=== PATIENT | male | born 1945 | race Caucasian/White ===

== ENCOUNTER 2016-11-28 20:27 | Inpatient (IN) ==
[2016-11-28] MEDS ORDERED: Ondansetron 4 MG/2 ML VIAL IVP ONE (20:34)
[2016-11-28] MEDS ORDERED: *HR* Morphine 2 MG/ML SYRINGE IVP ONE (20:34)
[2016-11-28] MEDS ORDERED: 0.9 % Sodium Chloride 1,000 ML IVC ONE (20:34)
--- NOTE | 2016-11-28 20:42 | Emergency Department Note ---
Disposition Clinical Impression: Hematochezia Abdominal pain Qualifiers: Abdominal location: lower abdomen, unspecified Qualified Code(s): R10.30 - Lower abdominal pain, unspecified Disposition: Admitted As Inpatient Condition: Fair Time of Disposition: 00:13 Abdominal Pain HPI - General Chief Complaint: ED Abdominal Pain Stated Complaint: lower abd pain, rectal bleeding Time Seen by Provider: 11/28/16 20:30 Nursing Notes Reviewed: Yes Vital Signs Reviewed: Yes - History of Present Illness HPI Narrative: Mr. Albert, a 71-year-old male, presents from the [place] for evaluation of lower abdominal pain and reported tabitha red blood per rectum. Onset at 04:15 this morning with diffuse abdominal cramping. Patient has had reportedly 18-20 loose stools with bright red clot-like strings of blood. He has had no testing or evaluation at the urgent care and was immediately referred to [facility]. PMH: Hypertension, hyponatremia, diabetes type 2, BPH, malignant melanoma status post remote resection PSH: No history of abdominal surgeries ROS: Positive: Chills, Diffuse lower abdominal cramping, bright red blood per rectum , mild generalized weakness Negative: Fever, nausea, vomiting, confusion, chest pains, palpitations, dyspnea , diaphoresis, numbness, tingling - Related Data Home Medications Medication Instructions Recorded Confirmed Amlodipine Besylate 10 mg PO DAILY 11/28/16 11/28/16 Cholecalciferol (D-3) [Vitamin D] 2,000 unit PO DAILY 11/28/16 11/28/16 Dulaglutide [Trulicity] 0.75 mg SQ QWEEK 11/28/16 11/28/16 Insulin Glargine,Hum.rec.anlog 58 unit SQ HS 11/28/16 11/28/16 [Basaglar Kwikpen U-100] Lisinopril [Zestril] 40 mg PO DAILY 11/28/16 11/28/16 Methocarbamol [Robaxin] 500 mg PO TID PRN 11/28/16 11/28/16 Pantoprazole Sodium [Protonix] 40 mg PO DAILY 11/28/16 11/28/16 Pravastatin Sodium [Pravachol] 40 mg PO HS 11/28/16 11/28/16 Terazosin HCl 6 mg PO 09/18/17 09/18/17 Allergies Allergy/AdvReac Type Severity Reaction Status Date / Time No Known Allergies Allergy Verified 11/28/16 21:00 All systems ED: reviewed and negative except as stated. Physical Exam Vital Signs Reviewed General: Patient is alert, oriented, and in no acute distress. HEENT: No facial asymmetry. Head is normocephalic and atraumatic. PERRLA, EOMI. oral mucosa moist. Trachea midline. Cardiovascular: Heart regular rate and rhythm without clicks, rubs, gallops, or murmurs. No JVD. PMI nondisplaced. Respiratory: Symmetric chest rise with good respiratory effort. Bilateral breath sounds are clear without wheezing, crackles, or rhonchi. Abdomen: Obese. Bowel sounds present normoactive x-4 quadrants. Abdomen is soft, nondistended. Lower abdominal tenderness slightly more prominent in the left lower quadrant. Rectal: Tabitha red blood per rectum. No hemorrhoids or fissures evident. Psych: Patient's affect is appropriate for situation. Course Course Narrative: History presents from the [place] where he initially refused workup preferring transfer to this facility for GI bleed. Onset this morning at 04:15. Patient has had 18-20 bouts of loose stools with bright red streaks of clot. He has no history of abdominal surgeries, no history of inflammatory bowel disease, no history of previous melena or hematochezia. He is symptomatic in that he has intense lower abdominal pain described as cramping, chills without fever, mild generalized weakness. Patient's hemoglobin shows no anemia. CT abdomen and pelvis without contrast concerning for colitis. FOBT not performed as rectal exam had tabitha red blood. I spoke with Dr. Robert of endoscopy to make them aware the patient and his active GI bleed. Patient remained stable. I spoke with the admitting hospitalist, Dr. Traylor, who agrees to accept the patient. Abdomen/Pelvis CT 11/28/16 20:34 IMPRESSION: Findings as above likely representing inflammatory or infectious colitis involving the descending colon. No free air or intra-abdominal fluid collection. 2 fluid collections along the lower right abdominal wall superficial to the musculature. 1 appears simple in 1 appears slightly complex. Findings may represent evolving hematomas as there is history of trauma. Correlate clinically. D/ / Jenna Watson MD / Jenna Watson MD Interpreting Provider: Jenna Watson MD Vital Signs Temperature 97.8 F 11/28/16 20:32 Pulse Rate 83 11/28/16 20:32 Respiratory Rate 18 11/28/16 20:32 Blood Pressure 137/102 11/28/16 20:32 O2 Sat by Pulse Oximetry 97 11/28/16 20:32 Temperature 97.8 F 11/28/16 20:32 Pulse Rate 63 11/28/16 22:31 Respiratory Rate 16 11/28/16 23:25 Blood Pressure 136/84 11/28/16 23:25 O2 Sat by Pulse Oximetry 98 11/28/16 22:31 Oxygen Delivery Oxygen Delivery Room Air Abdominal Pain - Medical Records Medical records reviewed: Yes I reviewed the patient's medical records. - Lab Data Lab results reviewed: Yes I reviewed the patient's lab results. Result diagrams: 11/28/16 20:55 11/28/16 20:55 Lab Results 11/28/16 11/28/16 11/28/16 Range/Units 20:55 20:55 20:55 WBC 10.9 (4.3-11.1) K/mcL RBC 5.45 (4.19-5.50) M/mcL Hgb 15.6 (12.9-16.9) g/dL Hct 46.1 (37.5-50.1) % MCV 84.6 (83.0-100.0) fL MCH 28.6 (28.0-33.3) pg MCHC 33.8 (31.6-35.5) g/dL RDW 12.9 (11.5-14.5) % Plt Count 171 (140-400) K/mcL MPV 11.0 (9.4-12.4) fL Immature Gran % 0.3 (0-4) % Seg Neutrophils % 66.1 % Lymphocytes % 25.9 % Monocytes % 6.5 % Eosinophils % 0.7 % Basophils % 0.5 % Neutrophils # 7.2 (1.6-8.9) K/mcL Lymphocytes # 2.8 (0.6-4.6) K/mcL Monocytes # 0.7 (0.0-1.3) K/mcL Eosinophils # 0.1 (0.0-0.6) K/mcL Basophils # 0.1 (0.0-0.2) K/mcL PT 10.4 (9.4-12.1) Seconds INR 1.0 APTT 25.8 L (26.0-36.0) Seconds Sodium 138 (136-145) mEq/L Potassium 4.2 (3.5-4.5) mEq/L Chloride 107 (98-109) mEq/L Carbon Dioxide 21 (19-29) mEq/L BUN 17 (8-26) mg/dL Creatinine 1.49 H (0.72-1.25) mg/dL Est GFR ( Amer) 56 L (> 60) Est GFR (Non-Af Amer) 46 L (> 60) BUN/Creatinine Ratio 11 (6-26) Glucose 151 H (70-99) mg/dL Calculated Osmolality 290 (280-300) Lactic Acid (0.5-2.2) mmol/L Calcium 9.5 (8.6-10.8) mg/dL Total Bilirubin 0.8 (0.2-1.2) mg/dL Direct Bilirubin 0.3 (0.0-0.5) mg/dL Indirect Bilirubin 0.5 (0.0-1.2) mg/dL AST 32 (5-34) Units/L ALT 38 (0-55) Units/L Alkaline Phosphatase 77 (38-126) Units/L Serum Total Protein 7.2 (6.0-8.3) g/dL Albumin 3.8 (3.5-5.0) g/dL Globulin 3.4 (2.4-3.5) g/dL Albumin/Globulin Ratio 1.1 (1.1-2.2) Lipase 54 (8-78) Units/L Urine Color (Yellow) Urine Clarity (Clear) Urine pH (5.0-8.0) pH Units Ur Specific [place] (1.010-1.025) Urine Protein (Neg-Trace) mg/dL Urine Glucose (UA) (Normal) mg/dL Urine Ketones (Negative) mg/dL Urine Blood (Negative) Urine Nitrite (Negative) Urine Bilirubin (Negative) Urine Urobilinogen (Normal) mg/dL Ur Leukocyte Esterase (Negative) Urine Microscopic RBC (0-3) per hpf Urine Microscopic WBC (0-3) per hpf Ur Squamous Epith Cells (None-Few) per lpf Urine Bacteria (None-Few) per hpf Hyaline Casts (None-Few) per lpf Ur Culture Indicated? (NO) 11/28/16 11/28/16 Range/Units 20:55 21:49 WBC (4.3-11.1) K/mcL RBC (4.19-5.50) M/mcL Hgb (12.9-16.9) g/dL Hct (37.5-50.1) % MCV (83.0-100.0) fL MCH (28.0-33.3) pg MCHC (31.6-35.5) g/dL RDW (11.5-14.5) % Plt Count (140-400) K/mcL MPV (9.4-12.4) fL Immature Gran % (0-4) % Seg Neutrophils % % Lymphocytes % % Monocytes % % Eosinophils % % Basophils % % Neutrophils # (1.6-8.9) K/mcL Lymphocytes # (0.6-4.6) K/mcL Monocytes # (0.0-1.3) K/mcL Eosinophils # (0.0-0.6) K/mcL Basophils # (0.0-0.2) K/mcL PT (9.4-12.1) Seconds INR APTT (26.0-36.0) Seconds Sodium (136-145) mEq/L Potassium (3.5-4.5) mEq/L Chloride (98-109) mEq/L Carbon Dioxide (19-29) mEq/L BUN (8-26) mg/dL Creatinine (0.72-1.25) mg/dL Est GFR ( Amer) (> 60) Est GFR (Non-Af Amer) (> 60) BUN/Creatinine Ratio (6-26) Glucose (70-99) mg/dL Calculated Osmolality (280-300) Lactic Acid 1.8 (0.5-2.2) mmol/L Calcium (8.6-10.8) mg/dL Total Bilirubin (0.2-1.2) mg/dL Direct Bilirubin (0.0-0.5) mg/dL Indirect Bilirubin (0.0-1.2) mg/dL AST (5-34) Units/L ALT (0-55) Units/L Alkaline Phosphatase (38-126) Units/L Serum Total Protein (6.0-8.3) g/dL Albumin (3.5-5.0) g/dL Globulin (2.4-3.5) g/dL Albumin/Globulin Ratio (1.1-2.2) Lipase (8-78) Units/L Urine Color Yellow (Yellow) Urine Clarity Clear (Clear) Urine pH 5.5 (5.0-8.0) pH Units Ur Specific [place] 1.022 (1.010-1.025) Urine Protein Trace (Neg-Trace) mg/dL Urine Glucose (UA) Normal (Normal) mg/dL Urine Ketones Negative (Negative) mg/dL Urine Blood Negative (Negative) Urine Nitrite Negative (Negative) Urine Bilirubin Negative (Negative) Urine Urobilinogen Normal (Normal) mg/dL Ur Leukocyte Esterase Negative (Negative) Urine Microscopic RBC 0-3 (0-3) per hpf Urine Microscopic WBC 0-3 (0-3) per hpf Ur Squamous Epith Cells Few (None-Few) per lpf Urine Bacteria None Seen (None-Few) per hpf Hyaline Casts None Seen (None-Few) per lpf Ur Culture Indicated? NO (NO) - Radiology Data Radiology results reviewed: Yes I reviewed the patient's radiology results. - EKG Data EKG attestation: Yes I reviewed and interpreted this EKG. EKG results narrative: EKG dated 11/28/16 at 21:03 interpreted as sinus rhythm with rate of 63. Prolonged CT interval at 246; first-degree AV block. Normal axis. Nonspecific ST T changes. No previous EKG for comparison. Attestation Statement - Attestation Attestation: I, Chuck Browne DO, examined this patient [id number] and my medical decision-making was reviewed with Dr. Bryn Hood, Resident Physician. I agree with the documented findings, disposition and treatment plan as described except to the extent set forth below. Please see my progress notes for details. 71-year-old male arrives by EMS from the [facility] for evaluation of multiple episodes of gross blood per rectum. Patient has no history of GI bleed hemorrhoids or rectal fissure. Had a colonoscopy 2 year ago with no complications. No polyps were noted no signs of cancer. No history of prostate related issues. Patient denies any other issues prior to today's events. He had lower abdominal discomfort and then had approximately 6-7 episodes of bright red blood per rectum over the last 12 hours. Patient did not have any lab work or imaging completed at the outside facility prior to arrival. EKG troponin labs type and screen CT imaging the abdomen ordered at this time. Physical exam is otherwise benign patient sitting up in the bed mild abdominal discomfort no peritoneal symptoms no guarding no rigidity abdomen is not distended. Lungs are clear heart is regular. Vital signs reviewed and are otherwise stable patient is not tachycardic or hypotensive. IV access obtained fluids to be given pain medication be provided as needed. Disposition will most likely be admission to hospital. See detailed documentation of the physical exam medical decision making process medical intervention and consultation for admission and the resident physician's notes.
[2016-11-28 21:06] LABS: Basophils # 0.1 K/mcL (0.0-0.2); Basophils % 0.5 %; Eosinophils # 0.1 K/mcL (0.0-0.6); Eosinophils % 0.7 %; Hematocrit 46.1 % (37.5-50.1); Hemoglobin 15.6 g/dL (12.9-16.9); Immature Granulocytes % 0.3 % (0-4); Lymphocytes # 2.8 K/mcL (0.6-4.6); Lymphocytes % 25.9 %; Mean Corpuscular HGB Conc 33.8 g/dL (31.6-35.5); Mean Corpuscular Hemoglobin 28.6 pg (28.0-33.3); Mean Corpuscular Volume 84.6 fL (83.0-100.0); Monocytes # 0.7 K/mcL (0.0-1.3); Monocytes % 6.5 %; Neutrophils # 7.2 K/mcL (1.6-8.9); Platelet Count 171 K/mcL (140-400); Red Blood Count 5.45 M/mcL (4.19-5.50); Red Cell Distribution Width 12.9 % (11.5-14.5); Segmented Neutrophils % 66.1 %
[2016-11-28 21:08] LABS: Prothrombin Time 10.4 Seconds (9.4-12.1)
[2016-11-28 21:11] LABS: Activated Partial Thrombo Time 25.8 Seconds (26.0-36.0)
[2016-11-28 21:18] LABS: Alanine Aminotransferase 38 Units/L (0-55); Albumin 3.8 g/dL (3.5-5.0); Albumin/Globulin Ratio 1.1 (1.1-2.2); Alkaline Phosphatase 77 Units/L (38-126); Aspartate Amino Transferase 32 Units/L (5-34); BUN/Creatinine Ratio 11 (6-26); Bilirubin,Direct 0.3 mg/dL (0.0-0.5); Bilirubin,Indirect 0.5 mg/dL (0.0-1.2); Bilirubin,Total 0.8 mg/dL (0.2-1.2); Blood Urea Nitrogen 17 mg/dL (8-26); Calcium 9.5 mg/dL (8.6-10.8); Carbon Dioxide 21 mEq/L (19-29); Chloride 107 mEq/L (98-109); Globulin 3.4 g/dL (2.4-3.5); Glucose 151 mg/dL (70-99); Lipase 54 Units/L (8-78); Osmolality,Calculated 290 (280-300); Potassium 4.2 mEq/L (3.5-4.5); Sodium 138 mEq/L (136-145); Total Protein 7.2 g/dL (6.0-8.3); eGFR For African Americans 56 (> 60); eGFR For Non-African Americans 46 (> 60)
[2016-11-28 21:53] LABS: Bilirubin,Urine Negative (Negative); Blood,Urine Negative (Negative); Clarity,Urine Clear (Clear); Color,Urine Yellow (Yellow); Glucose,Urine (UA) Normal (Normal); Ketones,Urine Negative (Negative); Leukocyte Esterase,Urine Negative (Negative); Nitrite,Urine Negative (Negative); PH,Urine 5.5 pH Units (5.0-8.0); Protein,Urine Trace mg/dL (Neg-Trace); Specific Gravity,Urine 1.022 (1.010-1.025); Urobilinogen,Urine Normal (Normal)
[2016-11-28 21:55] LABS: Bacteria,Urine None Seen per hpf (None-Few); Hyaline Casts,Urine None Seen per lpf (None-Few); RBC,Urine 0-3 per hpf (0-3); Squamous Epithelial Cell,Urine Few per lpf (None-Few); WBC,Urine 0-3 per hpf (0-3)
[2016-11-28] MEDS ORDERED: MetroNIDAZOLE 500 MG/100 ML 500 MG/100 ML BAG IVPB ONE (22:14)
[2016-11-29] MEDS ORDERED: Naloxone 0.4 MG/ML INJ IVP PRN (01:15)
[2016-11-29] MEDS ORDERED: 0.9 % Sodium Chloride 1,000 ML IVC SCH ×2 (01:15→12:09)
[2016-11-29] MEDS: *HR* Morphine 2 MG/ML SYRINGE IVP PRN ×2 (04:08→13:16)
[2016-11-29] MEDS: Pantoprazole 40 MG VIAL IVP SCH ×3 (04:08→18:26)
--- NOTE | 2016-11-29 04:21 | Internal Med History&Physical ---
Date of Encounter: 11/29/16 Time of Encounter: 02:00 Assessment and Plan (1) Hematochezia Current visit: Yes Status: Acute Acute infectious colitis of descending colon with acute lower GI bleed - causing abdominal pain NPO, continue IV Flagyl, IV Cipro IV fluids, IV Protonix, IV Morphine as needed Dr. Robert consult for GI bleed CT abdomen and pelvis - reviewed Cardiac telemetry, monitor closely, monitor H&H, type and screen Transfuse PRBC as needed (2) Hypertension Current visit: Yes Status: Chronic Essential hypertension controlled, continue home meds Qualifiers: Hypertension type: essential hypertension Qualified Code(s): I10 - Essential (primary) hypertension (3) Diabetes Current visit: Yes Status: Chronic Diabetes mellitus type II, insulin-dependent, hyperglycemia Continue insulin sliding scale, Levemir, glucose checks Qualifiers: Diabetes mellitus type: type 2 Diabetes mellitus complication status: without complication 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 Albert is a 71 year old male with past medical history of hypertension, diabetes, hyperlipidemia, BPH and history of melanoma status post resection. He presents to the ED with complaints of abdominal pain. Examined in the room. Patient is awake and alert. Not in any distress. Able to provide history. No family members at bedside. Patient states his abdominal pain started about 12 hours prior to arrival. He states he has diffuse abdominal cramping. He had multiple episodes of loose stools with bright red blood per rectum. He states it was initially streaks of blood and then he saw some clots. He states he continues to have bright red blood per rectum. He also complains of generalized weakness and nausea. No fever no vomiting. No chest pain and denies shortness of breath or palpitations or headache or dizziness. No aggravating or alleviating factors. Patient states symptoms came on suddenly. Patient was transferred from the [place] to our facility. Initial workup in the ED revealed mild acute kidney injury, stable H&H and infectious colitis involving the descending colon. Patient was also found to have 2 fluid collections along the lower right abdominal wall which could possibly hematoma. Patient states this hematoma has chronic, and says it has been present ever since he had surgery for melanoma. Patient is being admitted for GI bleed and acute colitis. CODE STATUS full code. Past Med Surg Social Fam HX - Past Medical History Medical history: cancer, diabetes, hyperlipidemia, hypertension, renal disease Psychiatric history: no psych history - Past Surgical History Surgical History: other (Malignant melanoma resection from right flank) - Social History Smoking Status: Never smoker Smokeless Tobacco Status: No Alcohol use: none Drug use: none - Family History Father Hx Family Endocrine Disorder: Yes (DM) Internal Medicine - H&P: Meds Amlodipine Besylate 10 mg PO DAILY 11/28/16 [History] Cholecalciferol (D-3) [Vitamin D] 2,000 unit PO DAILY 11/28/16 [History] Dulaglutide [Trulicity] 0.75 mg SQ QWEEK 11/28/16 [History] Insulin Glargine,Hum.rec.anlog [Basaglar Kwikpen U-100] 58 unit SQ HS 11/28/16 [ History] Lisinopril [Zestril] 40 mg PO DAILY 11/28/16 [History] Methocarbamol [Robaxin] 500 mg PO TID PRN 11/28/16 [History] Pantoprazole Sodium [Protonix] 40 mg PO DAILY 11/28/16 [History] Pravastatin Sodium [Pravachol] 40 mg PO HS 11/28/16 [History] Terazosin HCl 6 mg PO HS 11/28/16 [History] 3 Allergy/AdvReac Type Severity Reaction Status Date / Time No Known Allergies Allergy Verified 11/28/16 21:00 All Systems PM: A 10-system review of systems was performed and is negative for pertinent findings except as documented above in the HPI. - Constitutional Constitutional: fatigue, weakness, no fever(s) - EENT Eyes: no blurry vision - Cardiovascular Cardiovascular ROS IM: no chest pain, no claudication, no diaphoresis, no dyspnea, no dyspnea on exertion, no edema, no lightheadedness, no orthopnea, no palpitations, no syncope - Respiratory Respiratory: no cough, no dyspnea, no hemoptysis, no dyspnea on exertion, no wheezing, no chest congestion - Gastrointestinal Gastrointestinal: abdominal pain, bloating, cramping, diarrhea, hematochezia, nausea, no heartburn, no hematemesis, no vomiting - Genitourinary Genitourinary ROS male: no dysuria - Neurological Neurological ROS: no abnormal gait, no confusion, no dizziness, no loss of vision, no numbness, no tingling - Constitutional Vitals: Temp Pulse Resp BP Pulse Ox 97.7 F 57 15 168/89 98 11/29/16 00:40 11/29/16 00:40 11/29/16 00:40 11/29/16 00:40 11/29/16 00:40 General appearance: Present: cooperative, A&O X 3, pleasant, no acute distress, obese, answers questions appropriately - Head Head exam: Present: atraumatic - Eye Eye exam: Present: EOMI - ENT ENT exam: Present: mucous membranes dry - Respiratory Respiratory exam: Present: CTAB. Absent: rales, rhonchi, wheezes, tachypnea - Cardiovascular Cardiovascular exam: Present: RRR, +S1, +S2 - GI/Abdominal GI/Abdominal exam: Present: soft, tenderness (Mild generalized tenderness), no peritoneal signs. Absent: distended, firm, guarding - Extremities Exam Extremities exam: Present: radial pulses palpable and symmetrical. Absent: calf tenderness, cyanotic, pedal edema - Back Exam Additional comments: Large surgical scar over her back and right flank. History of melanoma resection. - Neurological Exam Neurological exam: Present: alert, oriented X3, no focal deficits. Absent: facial droop, speech deficit Internal Med - H&P Results - Labs CBC & Chem 7: 11/28/16 20:55 11/28/16 20:55
[2016-11-29] MEDS ORDERED: Dextrose Gel 15 GM PO PRN ×2 (04:31)
[2016-11-29] MEDS ORDERED: *HR* Dextrose 50 % in Water (Syg) 50 ML SYRINGE IVP PRN (04:31)
[2016-11-29] MEDS ORDERED: D5% in Water 1,000 ML IVC PRN (04:31)
[2016-11-29] MEDS: Ondansetron 4 MG/2 ML VIAL IVP PRN ×2 (07:15→18:28)
[2016-11-29 07:17] LABS: Basophils # 0.1 K/mcL (0.0-0.2); Basophils % 0.5 %; Eosinophils # 0.1 K/mcL (0.0-0.6); Eosinophils % 1.3 %; Hematocrit 43.2 % (37.5-50.1); Hemoglobin 14.1 g/dL (12.9-16.9); Immature Granulocytes % 0.2 % (0-4); Lymphocytes % 31.9 %; Mean Corpuscular HGB Conc 32.6 g/dL (31.6-35.5); Mean Corpuscular Hemoglobin 28.1 pg (28.0-33.3); Mean Corpuscular Volume 86.1 fL (83.0-100.0); Mean Platelet Volume 11.3 fL (9.4-12.4); Monocytes # 0.8 K/mcL (0.0-1.3); Monocytes % 8.1 %; Neutrophils # 5.4 K/mcL (1.6-8.9); Platelet Count 149 K/mcL (140-400); Red Blood Count 5.02 M/mcL (4.19-5.50); Red Cell Distribution Width 13.2 % (11.5-14.5)
[2016-11-29 07:27] LABS: Hemoglobin A1C 8.5 %
[2016-11-29] MEDS: Insulin LISPRO 300 UNITS/3 ML VIAL SQ SCH ×4 (07:27→21:18)
[2016-11-29 07:30] LABS: Calcium 8.8 mg/dL (8.6-10.8); Magnesium 1.6 mg/dL (1.6-2.6)
[2016-11-29] MEDS ORDERED: Pantoprazole 40 MG VIAL IVP SCH (09:00)
[2016-11-29] MEDS: MetroNIDAZOLE 500 MG/100 ML 500 MG/100 ML BAG IVPB SCH ×2 (10:06→16:46)
[2016-11-29] MEDS ORDERED: SODIUM CHLORIDE/NAHCO3/KCL/PEG 4,000 ML SOLN.RECON PO ONE (12:44)
--- NOTE | 2016-11-29 14:39 | Gastroenterology Consult Note ---
<Tim Au - Last Filed: 11/29/16 15:26> Date of Encounter: 11/29/16 Time of Encounter: 14:36 - Assessment and plan (1) BRBPR (bright red blood per rectum) Status: Acute Assessment and plan: CT abdomen/pelvis showed inflammatory vs infectious colitis involving descending coon, no free air in abdomen. There were fluid collections in the lower right abdominal wall superficial to musculature, likely hematomas. Plan: continue Antibiotic coverage colonoscopy tomorrow. clear liquid diet now, NPO after midnight. use Golytely bowel prep, if bowel movements not clear by 6am give two water tap enemas. - Time Spent With Patient Total time spent is greater than 50% in coordination of care (as documented) at patient's floor/unit and/or counseling patient: GI History of Present Illness - Data of Consult Consult date: 11/29/16 Requesting Physician: Meliton Liu MD - Consult Narrative Reason for consult: gastritis with hematochezia. History of present illness: Mr. Albert is a 71 year old male with PMHx of HTN, DM, HLD, BPH, history of melanoma. patient presented to the ED as transfer from [place] last night with chief complaint of abdominal pain which started about 12 hours prior to arrival at hospital. he also reports multiple episodes of loose stools (10-12) with bright red blood per rectum. He states that symptoms came on suddenly. He states he has had stringy blood clots in his bowel movements. he admits to nausea without vomiting, denies illicit drug use, denies using migraine meds. He denies chest pain or shortness of breath, fever, admits to occasional chills. Past Med Surg Social Fam HX - Past Medical History Medical history: cancer, diabetes, hyperlipidemia, hypertension, renal disease Psychiatric history: no psych history - Past Surgical History Surgical History: other (Malignant melanoma resection from right flank) - Social History Smoking Status: Never smoker Smokeless Tobacco Status: No Alcohol use: none Drug use: none - Family History Father Hx Family Endocrine Disorder: Yes (DM) All systems PM: reviewed and no additional remarkable complaints except as stated - Constitutional Vitals: Temp Pulse Resp BP Pulse Ox 97.5 F L 61 15 151/82 94 11/29/16 11:46 11/29/16 11:46 11/29/16 11:46 11/29/16 11:46 11/29/16 11:46 General appearance: Present: A&O X 3, pleasant, no acute distress, answers questions appropriately - Head Head exam: Present: atraumatic, normocephalic - Neck Neck exam general surgery: Present: supple, trachea midline - Respiratory Respiratory exam: Present: CTAB - Cardiovascular Cardiovascular exam: Present: RRR, +S1, +S2 - GI/Abdominal GI/Abdominal exam: Present: distended, soft, tenderness (lower abodminal tenderness present. ) - Extremities Exam Extremities exam: Absent: cyanotic, pedal edema - Neurological Exam Neurological exam: Present: alert, oriented X3, no focal deficits - Psychiatric Psychiatric exam: Present: normal affect, normal mood - Skin Skin exam: Present: intact Results - Labs CBC & Chem 7: 11/29/16 06:30 11/29/16 06:30 Labs: Last Result Calcium 8.8 mg/dL (8.6-10.8) 11/29/16 06:30 Entire Visit Hgb 14.1 g/dL (12.9-16.9) D 11/29/16 06:30 Hct 43.2 % (37.5-50.1) 11/29/16 06:30 PT 10.4 Seconds (9.4-12.1) 11/28/16 20:55 Total Bilirubin 0.8 mg/dL (0.2-1.2) 11/28/16 20:55 AST 32 Units/L (5-34) 11/28/16 20:55 ALT 38 Units/L (0-55) 11/28/16 20:55 Lipase 54 Units/L (8-78) 11/28/16 20:55 - ABG ABG results: PT/INR, D-dimer PT 10.4 Seconds (9.4-12.1) 11/28/16 20:55 Consult Discharge Plan - Plan Instructions: Diabetes Mellitus Type 2 in Adults ([place]) Additional Instructions: Patient appears to have CKD. Recommend follow up with Nephrology Referrals: [facility] [Outside] - 12/08/16 11:00 am Cristal Owens MD [Partnered Physician] - (The [place] will get this appt. approved and will call patient with date and time of appt. Thank you) Katelyn Guevara MD [Partnered Physician] - (2 week follow up for biopsy results. Office will call patient at home with date and time of appt. Thank you) Prescriptions: Aspirin Enteric Coated [Aspirin EC] 81 mg PO DAILY #30 tablet. Ciprofloxacin [Cipro] 500 mg PO BID #20 tablet metroNIDAZOLE [Flagyl] 500 mg PO TID #30 tablet <Michael Guillaume - Last Filed: 12/05/16 16:49> Date of Encounter: 11/29/16 - Time Spent With Patient Total time spent is greater than 50% in coordination of care (as documented) at patient's floor/unit and/or counseling patient: GI History of Present Illness - Data of Consult Requesting Physician: Meliton Liu MD - Consult Narrative History of present illness: Mr. Albert is a 71 year old male - Constitutional Vitals: Temp Pulse Resp BP Pulse Ox 97.9 F 70 17 126/76 97 12/01/16 07:03 12/01/16 07:03 12/01/16 07:03 12/01/16 07:03 12/01/16 07:03 Results - Labs CBC & Chem 7: 12/01/16 07:51 12/01/16 07:51 Labs: Last Result Calcium 9.2 mg/dL (8.6-10.8) 12/01/16 07:51 Entire Visit Hgb 14.0 g/dL (12.9-16.9) 12/01/16 07:51 Hct 42.3 % (37.5-50.1) 12/01/16 07:51 PT 10.4 Seconds (9.4-12.1) 11/28/16 20:55 Total Bilirubin 0.8 mg/dL (0.2-1.2) 11/28/16 20:55 AST 32 Units/L (5-34) 11/28/16 20:55 ALT 38 Units/L (0-55) 11/28/16 20:55 Lipase 54 Units/L (8-78) 11/28/16 20:55 - ABG ABG results: PT/INR, D-dimer PT 10.4 Seconds (9.4-12.1) 11/28/16 20:55 - Attending Attestation Personally interviewed and examined Mr Albert. Possiblity of ischemic colitis. Plan colonoscopy. Agree with above assessment. Discussed with patient.
--- NOTE | 2016-11-29 15:41 | Event Note ---
Date of Encounter: 11/29/16 Time of Encounter: 11:15 Patient continues to have abdominal discomfort but improved compared to yesterday. He has not yet had any bowel movement today. Feels hungry as he has not eaten for the past 2 days. Hemoglobin levels are stable. Continue IV antibiotics. GI consult appreciated. Plan for colonoscopy tomorrow to further evaluate GI bleed. Renal function slightly improved but unknown baseline. We will continue to monitor blood counts. Continue sliding scale insulin and Levemir for diabetes. Monitor blood sugars closely.
--- NOTE | 2016-11-29 18:38 | Electrocardiograph Report ---
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
[2016-11-29] MEDS ORDERED: NON-FORMULARY MEDICATION 1 EACH EACH (Insulin Glargine,Hum.Rec.Anlog [Basaglar Kwikpen U-1 SQ SCH (21:00)
[2016-11-29] MEDS: Insulin DETEMIR 100 UNIT/ML X5UNITS SQ SCH (21:18)
[2016-11-30] MEDS: MetroNIDAZOLE 500 MG/100 ML 500 MG/100 ML BAG IVPB SCH ×3 (00:12→15:56)
[2016-11-30] MEDS: Pantoprazole 40 MG VIAL IVP SCH ×2 (05:25→19:11)
[2016-11-30] MEDS: Insulin LISPRO 300 UNITS/3 ML VIAL SQ SCH ×4 (09:17→20:42)
[2016-11-30] MEDS: amLODIPine 5 MG TABLET PO SCH (09:17)
[2016-11-30] MEDS ORDERED: *HR* FentaNYL (PF) 100 MCG/2 ML VIAL ONE (17:06)
[2016-11-30] MEDS ORDERED: *HR* Midazolam HCl 5 MG/5 ML VIAL IVP ONE (17:06)
[2016-11-30] MEDS ORDERED: *HR* Promethazine 25 MG/ML VIAL ONE (17:09)
[2016-11-30] MEDS ORDERED: *HR* FentaNYL (PF) 100 MCG/2 ML VIAL IVP PRN (17:14)
[2016-11-30] MEDS ORDERED: *HR* Promethazine 25 MG/ML VIAL IVP ONE (17:14)
[2016-11-30] MEDS: *HR* Midazolam HCl 5 MG/5 ML VIAL IVP PRN ×2 (17:20→17:22)
--- NOTE | 2016-11-30 17:56 | Internal Med Progress Note ---
Date of Encounter: 11/30/16 Time of Encounter: 10:35 - Assessment and plan (1) Hematochezia Current Visit: Yes Status: Acute Assessment and plan: Possible inflammatory versus ischemic bowel disease. Awaiting colonoscopy scheduled for later today. Hematochezia seems to have improved. Patient's abdominal pain has also improved. We will continue to monitor blood counts. Start patient on clear liquids and advance diet as tolerated after colonoscopy. (2) Hypertension Current Visit: Yes Status: Chronic Qualifiers: Hypertension type: essential hypertension Qualified Code(s): I10 - Essential (primary) hypertension (3) Diabetes Current Visit: Yes Status: Chronic Assessment and plan: Well-controlled at this time. We will continue to monitor blood counts and adjust insulin regimen accordingly. Patient does appear to have chronic kidney disease as his creatinine remained stable despite hydration. And his BUN is not significantly elevated. 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 Abdominal pain has mostly subsided. No longer having any bloody bowel movements. Did take bowel prep for colonoscopy that is planned for later today. Has been nothing by mouth overnight. - Constitutional Vitals: Temp Pulse Resp BP Pulse Ox 98.2 F 76 16 133/78 99 11/30/16 14:40 11/30/16 17:45 11/30/16 17:45 11/30/16 17:45 11/30/16 17:45 General appearance: Present: cooperative, A&O X 3, pleasant, no acute distress, obese, answers questions appropriately - Eye Eye exam: Present: EOMI, PERRL, conjuntiva pink, sclera anicteric - Neck Neck exam general surgery: Present: supple, trachea midline. Absent: lymphadenopathy - Respiratory Respiratory exam: Present: CTAB. Absent: accessory muscle use, rales, rhonchi, wheezes - Cardiovascular Cardiovascular exam: Present: RRR, +S1, +S2. Absent: diastolic murmur, gallop, rubs, systolic murmur - GI/Abdominal GI/Abdominal exam: Present: normal bowel sounds, soft, no peritoneal signs. Absent: distended, tenderness - Extremities Exam Extremities exam: Present: warm, radial pulses palpable and symmetrical. Absent : calf tenderness, cyanotic, pedal edema - Neurological Exam Neurological exam: Present: alert, oriented X3, no focal deficits. Absent: facial droop, speech deficit - Skin Skin exam: Present: dry, intact Internal Medicine: Result - Labs CBC & Chem 7: 11/29/16 06:30 11/29/16 06:30 - ABG Interpretation ABG results: PT/INR, D-dimer PT 10.4 Seconds (9.4-12.1) 11/28/16 20:55 Consult Discharge Plan - Plan Referrals: [facility] [Outside] - 12/08/16 11:00 am
[2016-11-30] MEDS: Insulin DETEMIR 100 UNIT/ML X5UNITS SQ SCH (20:43)
[2016-12-01] MEDS: MetroNIDAZOLE 500 MG/100 ML 500 MG/100 ML BAG IVPB SCH ×2 (00:12→07:59)
[2016-12-01] MEDS: Pantoprazole 40 MG VIAL IVP SCH (05:20)
[2016-12-01 07:11] VITALS: BP 126/76
[2016-12-01] MEDS: amLODIPine 5 MG TABLET PO SCH (07:58)
[2016-12-01] MEDS: Insulin LISPRO 300 UNITS/3 ML VIAL SQ SCH (07:59)
[2016-12-01 08:11] LABS: Basophils # 0.1 K/mcL (0.0-0.2); Basophils % 0.9 %; Eosinophils # 0.2 K/mcL (0.0-0.6); Eosinophils % 2.1 %; Hematocrit 42.3 % (37.5-50.1); Immature Granulocytes % 0.1 % (0-4); Lymphocytes # 2.6 K/mcL (0.6-4.6); Lymphocytes % 31.5 %; Mean Corpuscular HGB Conc 33.1 g/dL (31.6-35.5); Mean Corpuscular Hemoglobin 28.5 pg (28.0-33.3); Mean Corpuscular Volume 86.2 fL (83.0-100.0); Monocytes # 0.7 K/mcL (0.0-1.3); Monocytes % 8.8 %; Neutrophils # 4.6 K/mcL (1.6-8.9); Platelet Count 136 K/mcL (140-400); Red Blood Count 4.91 M/mcL (4.19-5.50); Red Cell Distribution Width 12.9 % (11.5-14.5); Segmented Neutrophils % 56.6 %
--- NOTE | 2016-12-01 08:16 | Discharge Summary ---
Date of Encounter: 12/01/16 Time of Encounter: 08:11 - Discharge Diagnosis (1) Acute ischemic colitis Priority: Primary Status: Acute (2) Hematochezia Priority: Secondary Status: Acute (3) Hypertension Priority: Secondary Status: Chronic Qualifiers: Hypertension type: essential hypertension Qualified Code(s): I10 - Essential (primary) hypertension (4) Diabetes Priority: Secondary Status: Chronic Qualifiers: Diabetes mellitus type: type 2 Diabetes mellitus complication status: with kidney complications Diabetes mellitus complication detail: with chronic kidney disease Diabetes mellitus senior care insulin use: with intermediate manager use Chronic kidney disease stage: stage 2 (mild) Qualified Code(s): E11.22 - Type 2 diabetes mellitus with diabetic chronic kidney disease; N18.2 - Chronic kidney disease, stage 2 (mild); Z79.4 - intermediate manager (current) use of insulin (5) Hyperlipidemia Priority: Secondary Status: Chronic Qualifiers: Hyperlipidemia type: unspecified Qualified Code(s): E78.5 - Hyperlipidemia , unspecified (6) DVT prophylaxis Priority: Secondary Status: Acute - Discharge Medications Prescriptions: Aspirin Enteric Coated [Aspirin EC] 81 mg PO DAILY #30 tablet. Ciprofloxacin [Cipro] 500 mg PO BID #20 tablet metroNIDAZOLE [Flagyl] 500 mg PO TID #30 tablet Home Medications: Amlodipine Besylate 10 mg PO DAILY 11/28/16 [History] Cholecalciferol (D-3) [Vitamin D] 2,000 unit PO DAILY 11/28/16 [History] Dulaglutide [Trulicity] 0.75 mg SQ QWEEK 11/28/16 [History] Insulin Glargine,Hum.rec.anlog [Basaglar Kwikpen U-100] 58 unit SQ HS 11/28/16 [ History] Lisinopril [Zestril] 40 mg PO DAILY 11/28/16 [History] Methocarbamol [Robaxin] 500 mg PO TID PRN 11/28/16 [History] Pantoprazole Sodium [Protonix] 40 mg PO DAILY 11/28/16 [History] Pravastatin Sodium [Pravachol] 40 mg PO HS 11/28/16 [History] Terazosin HCl 6 mg PO HS 11/28/16 [History] Aspirin Enteric Coated [Aspirin EC] 81 mg PO DAILY #30 tablet. 12/01/16 [Rx] Ciprofloxacin [Cipro] 500 mg PO BID #20 tablet 12/01/16 [Rx] metroNIDAZOLE [Flagyl] 500 mg PO TID #30 tablet 12/01/16 [Rx] Allergies/Adverse Reactions: 3 Allergy/AdvReac Type Severity Reaction Status Date / Time No Known Allergies Allergy Verified 11/28/16 21:00 - Notes to Outpatient Provider Patient appears to have CKD. Recommend follow up with Nephrology Date of admission: 11/29/16 12:28 Primary care physician: PCP [facility] Consults: 11/28/16 23:13 Consult to Physician [CONS] Routine Consulting Provider: Rosas Robert Reason for Consult: Gastritis w/hematochezia Time Notified: 23:21 Call Completed: Yes Discharging clinician: Meliton Liu Anticipated date of discharge: 12/01/16 - Patient Status Disposition: Home, Self-Care Condition: Good Functional capacity at discharge: independent ambulation Overall status at discharge: patient is progressing back to baseline - Discharge Instructions Instructions: Diabetes Mellitus Type 2 in Adults (DC) Follow Up With: [facility] [Outside] - 12/08/16 11:00 am Cristal Owens MD [Partnered Physician] - (The [facility] will get this appt. approved and will call patient with date and time of appt. Thank you) Katelyn Guevara MD [Partnered Physician] - (2 week follow up for biopsy results. Office will call patient at home with date and time of appt. Thank you) Additional Instructions: Patient appears to have CKD. Recommend follow up with Nephrology - Diet and Activity Activity: increase activity as tolerated Diet: advance to your usual diet, diabetic diet, low fat, low cholesterol, low salt diet Hospital course: Mr. Albert is a 71 year old male patient with history of hypertension, diabetes, hyperlipidemia who was hospitalized here with acute lower GI bleed and abdominal pain. CT scan of the abdomen and pelvis showed possible inflammatory versus infectious colitis involving the descending colon. Per GI recommendations, patient was started on antibiotics and underwent colonoscopy yesterday. Colonoscopy suggested the presence of ischemic colitis involving the splenic flexure. Patient also had 4 polyps which were removed and sent for pathology. Currently patient is doing well with no significant pain. He has not had any further episodes of GI bleed. He is clinically stable for discharge and will follow up with GI for further management. He will be discharged on a short course of antibiotic therapy for his colitis. He will also be placed on aspirin in addition to statin. - Time Spent with Patient Total time spent providing and/or coordinating discharge services: Less than 30 minutes (25 min) - Constitutional Vitals: Temp Pulse Resp BP Pulse Ox 97.9 F 70 17 126/76 97 12/01/16 07:03 12/01/16 07:03 12/01/16 07:03 12/01/16 07:03 12/01/16 07:03 General appearance: Present: cooperative, A&O X 3, pleasant, no acute distress, obese, answers questions appropriately - Neck Neck exam general surgery: Present: supple, trachea midline. Absent: lymphadenopathy - Respiratory Respiratory exam: Present: CTAB. Absent: accessory muscle use, rales, rhonchi, wheezes - Cardiovascular Cardiovascular exam: Present: RRR, +S1, +S2. Absent: diastolic murmur, gallop, rubs, systolic murmur - GI/Abdominal GI/Abdominal exam: Present: normal bowel sounds, soft, no peritoneal signs. Absent: distended, tenderness - Extremities Exam Extremities exam: Present: warm, radial pulses palpable and symmetrical. Absent : calf tenderness, cyanotic, pedal edema - Neurological Exam Neurological exam: Present: alert, oriented X3, no focal deficits. Absent: facial droop, speech deficit - Skin Skin exam: Present: dry, intact - VTE Documentation of Mechanical Device: Intermittent pneumatic compression device
[2016-12-01 08:27] LABS: Calcium 9.2 mg/dL (8.6-10.8); Potassium 4.1 mEq/L (3.5-4.5)
[2016-12-01] MEDS ORDERED: Lisinopril 20 MG TABLET PO SCH (09:00)
== END 2016-12-01 09:59 | disposition home or self-care (01) | DRG 349 ==
LOC: 3ANU 20:27 → EMEROO 20:27 → SUATTDRO 23:07 → 3ANU 11-29 00:15
PROVIDERS: ADMIT Family Medicine; ATTEND Internal Medicine